=== PATIENT | female | born 1995 | race Two or more races ===

== ENCOUNTER 2024-12-31 19:28 | Inpatient (IN) | payer MEDICAID, SELFPAY ==
[2024-12-31 19:30] VITALS: BMI 24.7
[2024-12-31 19:51] VITALS: BP 133/80; PULSE 88; RESP 18; TEMP 37.1; O2SAT 97
[2024-12-31 20:17] LABS: Collection Type, Urine Clean Catch
[2024-12-31 20:30] LABS: Bacteria,Urine Rare; Bilirubin,Urine Negative (Negative); Blood,Urine Negative (Negative); Clarity,Urine Clear (Clear/Hazy); Color,Urine Colorless (Lt Yel-Yel); Glucose, Urine Negative (Negative); Ketones,Urine Negative (Negative); Leukocyte Esterase,Urine Negative (Negative); Nitrite,Urine Negative (Negative); PH,Urine 6.5 (5.0-7.0); Protein,Urine Negative (Neg - Trace); RBC,Urine 1 /hpf (0-3); Specific Gravity,Urine 1.005 (1.001-1.035); Squamous Epithelial Cell,Urine < 1 /hpf (0-5); Urobilinogen,Urine Negative mg/dL (0.0-1.0); WBC,Urine 2 /hpf (0-5)
[2024-12-31 20:31] LABS: HCG Qualitative,Urine Negative
--- NOTE | 2024-12-31 20:34 | XR_ITS ---
Examination: CT abdomen with intravenous contrast CT pelvis with intravenous contrast 2-D coronal reconstructions 2-D sagittal reconstructions Date and time of exam:January 01, 2000 2510 0 7:00 PM Comparison November 04, 2020 INDICATIONS: Left-sided abdominal pain this week. CTDI: vol (mGy) 7.22 DLP: (mGycm) 374 Technique: Multiple axial sections of the abdomen and pelvis have been obtained. 64 slice high-resolution scanner used. 3 mm axial sections have been obtained, post intravenous injection 60 cc [id number] 2-D sagittal, coronal reconstructions obtained. Low dose protocols were performed. One or more of the following dose reduction techniques were used; automated exposure control, adjustment of the mA and/or KV according to patient size, use of iterative reconstruction technique. Findings: No focal liver or splenic lesions. Absent gallbladder. No pancreatic or adrenal mass. 1 mm lower pole left renal calculus Mild renal parenchymal scar formation Aorta normal size Normal appendix Diffuse wall thickening involving the colon No bowel obstruction No diverticulitis Tiny air droplet in the urinary bladder Osseous structures are intact IMPRESSION: Mild nonspecific diffuse colitis pattern 1 mm nonobstructing left renal calculus
--- NOTE | 2024-12-31 20:36 | PD.EDABDPN ---
ED Abdominal Pain RME/HPI General Chief Complaint: Abdominal Pain Stated complaint: ABD PAIN Time seen by provider: 12/31/24 19:55 Arrival date/time: 12/31/24 19:28 RME / HPI RME / HPI narrative: 29-year-old female with a past medical history of chronic abdominal issues presents to the ED with worsening pain in her left abdomen that became much worse today. She has the urgency to have a bowel movement however she is unable to have a BM. She has had nausea and chills but no vomiting or fever. She had an endoscopy and colonoscopy approximately 4 years ago, which she states was negative. She denies any dysuria or frequency. Related Data Home Medications ?Medication ?Instructions ?Recorded ?Confirmed prenat.vits,gurmeet,[id number] 1 tab PO QDAY 10/24/22 03/04/24 calcium carbonate (Tums) 200 mg PO QDAY 03/04/24 03/04/24 famotidine 10 mg tablet 10 mg PO QDAY 03/04/24 03/04/24 Previous Rx's ?Medication ?Instructions ?Recorded pantoprazole 20 mg tablet,delayed 20 mg PO QDAY 30 days #30 tabs 11/28/23 release Allergies Allergy/AdvReac Type Severity Reaction Status Date / Time No Known Allergies Allergy Verified 12/31/24 19:29 Review of Systems Review of Systems Systems Reviewed: All systems reviewed, normal except as documented Past Medical History Past Medical History NEUROLOGIC: Positive Neurological Disorders and Migraine; Negative Seizures CARDIAC: Negative Cardiac Disorders, Congestive Heart Failure, Edema, Cellulitis or Varicose Veins RESPIRATORY: Negative Chronic Obstructive Pulmonary Disease (COPD) or Asthma GASTROINTESTINAL: Positive Gastrointestinal Disorders, Gall Bladder Disease and Gastroesophageal Reflux Disease; Negative Hepatitis GENITOURINARY: Negative Genitourinary Disorders or Renal Disease REPRODUCTIVE: Positive Previous Pregnancies MUSCULOSKELETAL: Negative Musculoskeletal Disorders ENDOCRINE: Negative Endocrine Disorders, Diabetes Mellitus Type 1 or Diabetes Mellitus Type 2 HEMATOLOGIC: Positive Blood Disorders and Anemia; Negative Sickle Cell Disease PSYCHO/SOCIAL: Positive Depression and Anxiety OTHER HISTORY: Positive Autoimmune Disease and Chicken Pox; Negative Hospitalization, Shingles, Falls, Blood Transfusions, Blood Transfusion Reaction, Anesthesia Reactions, Chemotherapy, Radiation Therapy, MRSA, Measles, Mumps or Cancer Family History FAMILY HISTORY: Positive Family Psychiatric Problems (nephew autism, self anxiey/depression), Family Respiratory Disorders (kids have asthma), Family Cardiac Disorders (sister), Family Gastrointestinal Problems (mother-stomach problems), Family Cancer (grandmother non-hodgkins lymphoma), Family Surgery and Family Anesthesia Reaction (self, pt gets nausea) Surgical History SURGICAL: Positive Section (x3); Negative Pacemaker Social History SMOKING STATUS: Never smoker SECOND HAND EXPOSURE: No SUBSTANCE USE: does not use ED Exam Narrative Physical exam: A&O, afebrile and non-toxic appearing 29-year-old female, mild acute pain distress. Lung sounds are clear, RRR, Abdomen is soft, with left-sided abdominal pain, no right lower quadrant abdominal tenderness, positive rebound and guarding noted to the left side of the abdomen. Mild peritoneal irritation with pelvic rock. Non-distended. No CVA tenderness. Moves all extremities well. Course Course Course Narrative: Vital signs blood pressure 133/80, pulse 88, respirations 18 and nonlabored, temperature 98.7, O2 sat 97% on room air. CBC reveals an elevated white count of 14.8, normal H&H, low MCV, MCH, and RDW. Platelets are normal. ANC is elevated at 12.8. CMP reveals normal electrolytes with the exception of a minimally elevated glucose of 115, normal renal function, normal LFTs with normal lipase. Urinalysis reveals clear colorless urine with a specific gravity of 1.005 with negative nitrites, negative leukocyte esterase, 1 RBC, 2 WBCs, rare bacteria. Urine hCG is negative. Urine tox is negative. CT of the abdomen and pelvis reveals 1 mm lower pole left renal calculus with mild renal parenchymal scar formation. Normal appendix, diffuse wall thickening involving the colon suggestive of mild nonspecific diffuse colitis pattern, no bowel obstruction, no diverticulitis. Discussed case with Dr. Leggett, who recommends admission for IV fluids, antibiotics, and GI consult in the morning. Discussed case with Dr. Keenan, Resident/Hospitalist, who will be down to evaluate the patient for admission. Quality Measures none Orders Category Date Time Status CT Screening NOW Care 12/31/24 20:[address] Screening X1 Care 12/31/24 20:34 Active IV [Insert IV] NOW Care 12/31/24 20:[address] abdomen pelvis w con Stat Exams 12/31/24 20:34 Completed CBC Stat Lab 12/31/24 20:30 Completed Comprehensive Metabolic Panel Stat Lab 12/31/24 20:09 Completed Drug Screen,Urine Stat Lab 12/31/24 20:04 Completed HCG Qualitative,Urine Stat Lab 12/31/24 20:09 Completed Lipase Stat Lab 12/31/24 20:09 Completed Magnesium Stat Lab 12/31/24 20:09 Completed Urinalysis Stat Lab 12/31/24 20:09 Completed Vital Signs Vital signs: Vital Signs Temperature 98.7 F 12/31/24 19:51 Pulse Rate 88 12/31/24 19:51 Respiratory Rate 18 12/31/24 19:51 Blood Pressure 133/80 H 12/31/24 19:51 Pulse Oximetry (%) 97 12/31/24 19:51 Oxygen Delivery Method Room Air 12/31/24 19:51 Discharge Plan Prescriptions/Referrals Prescriptions/Med Rec: No Action prenat.vits,gurmeet,[id number] Tablet 1 tab PO QDAY pantoprazole 20 mg tablet,delayed release (DR/EC) 20 mg PO QDAY 30 Days Qty: 30 1RF famotidine 10 mg Tablet 10 mg PO QDAY calcium carbonate [Tums] 200 mg calcium (500 mg) Tablet,Chewable 200 mg PO QDAY Referrals: Bernabe Smith MD [Primary Care Provider] - In 1 week Patient/Caregiver Discharge Instructions Print Language: German
[2024-12-31 20:57] LABS: Basophils # (Auto) 0.0 Thou/mm3 (0.0-0.2); Basophils % (Auto) 0 % (0-2.5); Eosinophils # (Auto) 0.0 Thou/mm3 (0.0-0.5); Eosinophils % (Auto) 0 % (0-10); Hematocrit 37.9 % (36.0-46.0); Hemoglobin 12.4 g/dL (12.0-16.0); Immature Granulocytes Auto 0.05 Thou/mm3 (0.00-0.00); Lymphocytes # (Auto) 1.6 Thou/mm3 (1.0-4.8); Lymphocytes % (Auto) 11 % (10-50); Mean Corpuscular HGB Conc 32.7 g/dl (31.0-37.0); Mean Corpuscular Hemoglobin 24.8 pg (25.0-35.0); Mean Corpuscular Volume 76 fL (80-100); Monocytes # (Auto) 0.4 Thou/mm3 (0.0-0.8); Monocytes % (Auto) 3 % (0-12); Neutrophils # (Auto) 12.8 Thou/mm3 (1.8-7.7); Neutrophils % (Auto) 86 % (37-80); Nucleated Red Blood Cell # 0.00 Thou/mm3 (0.00-0.00); Nucleated Red Blood Cell % 0 /100 WBC (0); Platelet Count 233 Thou/mm3 (140-440); RDW Standard Deviation 34.4 fL (36.4-46.3); Red Blood Count 4.99 Miln/mm3 (4.00-5.20); White Blood Count 14.8 Thou/mm3 (3.6-11.0)
[2024-12-31 21:24] LABS: Alanine Aminotransferase 10 U/L (10-49); Albumin, Serum 5.0 gm/dL (3.5-5.0); Albumin/Globulin Ratio 1.8 (1.2-2.2); Alkaline Phosphatase 66 U/L (46-116); Anion Gap 12 (7-16); Aspartate Amino Transferase 20 U/L (0-34); BUN/Creatinine Ratio 12 Ratio (12-20); Bilirubin,Total 0.4 mg/dL (0.3-1.2); Blood Urea Nitrogen 7 mg/dL (9-23); Calcium 10.2 mg/dL (8.3-10.6); Calcium (Corrected) 10.2 mg/dL (8.5-10.1); Carbon Dioxide 24.5 mMol/L (20.0-31.0); Chloride 104 mMol/L (98-107); Creatinine (Component) 0.6 mg/dL (0.6-1.3); Estimated Creatinine Clearance 124.1 mL/min (>60); Globulin 2.8 gm/dL (2.3-3.5); Glucose 115 mg/dL (74-106); Magnesium 2.0 mg/dL (1.6-2.6); Osmolality,Calculated 278 (275-295); Potassium 3.7 mMol/L (3.4-5.1); Sodium 140 mMol/L (136-145); Total Protein 7.8 gm/dL (5.7-8.2); eGFR > 60 See Note
[2024-12-31 22:27] LABS: Lipase 32 U/L (12-53)
[2024-12-31 22:33] LABS: Amphetamine/Methamp Scrn,U Negative (Negative); Barbiturate Screen,Urine Negative (Negative); Benzodiazepines Screen,Urine Negative (Negative); Benzoylecgonine Screen, Ur Negative (Negative); Fentanyl Screen,Urine Negative (Negative); Opiate Screen,Urine Negative (Negative); THC Screen,Urine Negative (Negative)
[2025-01-01] MEDS: SODIUM CHLORIDE 0.9% 1000 ML 1,000 ML 999 ML IV (00:08)
[2025-01-01 00:31] LABS: Lactate (Lactic Acid) 0.9 mMol/L (0.4-2.0)
--- NOTE | 2025-01-01 01:03 | PD.RESHP ---
Documentation for date of: 01/01/25 [facility] History of Present Illness Chief complaint: Abdominal pain History of present illness: 29 y/o F without significant PMHx presents with chief complaints of significant abdominal pain and nausea. Patient reports that she frequently has change in bowel habits and abdominal pain, had a colonoscopy and EGD 4 years ago that was negative. Patient reports she frequently changes between diarrhea and constipation. She has intermittent abdominal pain, however for the past 2 days been increasing in intensity significantly. Patient also reports chills and nausea without vomiting this time. Pain increases with solid p.o. intake. Patient reports persistent feeling of tenesmus. Patient denies fevers, shortness of breath, chest pain. ED COURSE: Labs significant for: WBC 14.8, hCG negative, U tox negative. Imaging significant for: CT A/P showing diffuse colitis. Patient achieved 1 L bolus normal saline in the ED. PMH: None PSH: 4 C-sections, cholecystectomy SH: Denies alcohol, tobacco, illicit drug use. Allergies:?None Medications: None Review of Systems Review of Systems Systems Reviewed: All systems reviewed, normal except as documented Past Medical History Past Medical History Comments PMH COMMENT: PMH: None PSH: 4 C-sections, cholecystectomy SH: Denies alcohol, tobacco, illicit drug use. Allergies:?None Medications: None Exam Vital Signs Temp Pulse Resp BP Pulse Ox O2 Del Method 98.7 F 88 18 133/80 H 97 Room Air 12/31/24 19:51 12/31/24 19:51 12/31/24 19:51 12/31/24 19:51 12/31/24 19:51 12/31/24 19:51 Narrative Exam PE: Gen: Well-developed and well-nourished. HEENT: NCAT, PERRLA, EOMI, MMM, anicteric conjunctivae. CVS: normal S1 and S2. RRR. No M/R/G. Resp: CTA B/L. No rhonchi, rales, crackles or wheezing. Abd: soft, non-distended. Diffuse abdominal tenderness, most prominent in the left lower quadrant. MSK: Good ROM in BUE & BLE. No edema or rash. Neuro: CN II-XII grossly intact. Strength 5/5 in BUE & BLE. Alert and oriented x3. Psych: appropriate mood and affect. Results: Labs 12/31/24 20:30 12/31/24 20:09 Labs: Short CBC 12/31/24 Range/Units 20:30 WBC 14.8 H (3.6-11.0) Thou/mm3 Hgb 12.4 (12.0-16.0) g/dL Hct 37.9 (36.0-46.0) % Plt Count 233 (140-440) Thou/mm3 BMP 12/31/24 20:09 Sodium 140 Potassium 3.7 Chloride 104 Carbon Dioxide 24.5 BUN 7 L Creatinine 0.6 Glucose 115 H Calcium 10.2 Liver Function 12/31/24 Range/Units 20:09 Total Bilirubin 0.4 (0.3-1.2) mg/dL AST 20 (0-34) U/L ALT 10 (10-49) U/L Alkaline Phosphatase 66 (46-116) U/L Albumin 5.0 (3.5-5.0) gm/dL Urine 12/31/24 Range/Units 20:09 Urine Color Colorless A (Lt Yel-Yel) Urine Clarity Clear (Clear/Hazy) Urine pH 6.5 (5.0-7.0) Ur Specific [place] 1.005 (1.001-1.035) Urine Protein Negative (Neg - Trace) Urine Glucose (UA) Negative (Negative) Quality Measures Quality Measures VTE prophylaxis Medications Home Medications and Allergies Home Medications ?Medication ?Instructions ?Recorded ?Confirmed ?Type calcium carbonate (Tums) 200 mg PO QDAY 03/04/24 01/01/25 History famotidine 10 mg tablet 10 mg PO QDAY 03/04/24 01/01/25 History Allergies Allergy/AdvReac Type Severity Reaction Status Date / Time No Known Allergies Allergy Verified 12/31/24 19:29 Visit Medications Acetaminophen (Acetaminophen 325 Mg Tablet) 650 mg PO Q6H PRN PRN Reason: Fever >100.4 or pain Stop: 01/31/25 00:52 Enoxaparin Sodium (Enoxaparin Sod Inj 40 Mg/0.4 Ml Syringe) 40 mg SC QDAY TRISTAN Stop: 01/15/25 08:59 Hydromorphone HCl (Hydromorphone Inj 2 Mg/Ml Vial) 2 mg IVP Q4HR PRN PRN Reason: PAIN SCALE 4-10(Mod-Sev Stop: 01/06/25 00:52 Ciprofloxacin/Dextrose (Cipro Ivpb) 400 mg in 200 mls @ 200 mls/hr IV Q12HR TRISTAN Stop: 01/08/25 00:55 Metronidazole (Flagyl 500 Mg Iv) 500 mg in 100 mls @ 200 mls/hr IV Q8HR TIRSTAN Stop: 01/08/25 00:55 Ondansetron HCl (Ondansetron Inj 2 Mg/Ml Inj 2 Ml) 4 mg IVP Q6H PRN; Protocol PRN Reason: NAUSEA OR VOMITING Stop: 01/31/25 00:52 Discontinued Medications Sodium Chloride (Ns) 1,000 mls @ 999 mls/hr IV .Q1H1M ONE Stop: 01/01/25 01:03 Last Admin: 01/01/25 00:08 Dose: 999 mls/hr Assessment & Plan Plan 29 y/o F without significant PMHx presents with chief complaints of significant abdominal pain and nausea, admitted for colitis. #Colitis Patient presented with chief complaint of abdominal pain, tenesmus with constipation. Patient has history of changes in bowel habits between constipation and diarrhea, intermittent abdominal pain, although this is worse than her usual episodes. Patient reports nausea without vomiting, chills. Denies fevers, shortness of breath, chest pain. Leukocytosis 14.8, U tox and hCG testing negative. Patient colonoscopy and EGD 4 years ago that was negative. CT A/P shows diffuse colitis. - CLD - Stool calprotectin, WBCs, culture - GI consult, appreciate recs - Cipro for 400 mg IV every 12 hours (started 01/01) - Flagyl 500 mg IV every 8 hour (started 01/01) #Left renal calculus - Incidental finding on CT abdomen/pelvis - Found to have 1 mm lower pole left renal calculus - Outpatient follow-up DVT prophylaxis: Lovenox GI prophylaxis: None Diet: Clear liquid diet Lines: PIV Code status: Full code Plan of care is discussed with attending Dr. Gardner. Jesus Rogers MD PGY?2 Attending Provider Attestation/Addendum I attest that I was physically present for the evaluation, physical examination, lab and imaging review of the patient with the residents. I discussed the case with the residents and agree with the findings and plans of care as documented above. After examination of the patient and review of the clinical data I feel that this patient needs admission to the hospital for further treatment/evaluation. Patient is a 29 years old female without known past medical history who presented to the ED with complaint of abdominal pain and nausea. Patient has change in her bowel habit, abdominal pain which has been going for few years, she had a colonoscopy and EGD done 4 years ago which was negative. Patient has been having alternating diarrhea and constipation. For the last 2 days, has been getting a increasingly worse. In the ED, initial vitals were within normal limits. Lab results show WBC of 14.8, MCV 76, chemistry panel showed calcium of 10.2. Abdomen/pelvis CT was done, which showed 1 mm nonobstructing left renal calculus and mild nonspecific diffuse colitis pattern. We will admit the patient for management of colitis. We will start her on IV ciprofloxacin and Flagyl. Obtain stool studies, start on clear liquid diet and obtain GI consult. George Gardner MD
[2025-01-01] MEDS: ONDANSETRON INJ 2 MG/ML INJ 2 ML 4 MG IVP (01:06)
[2025-01-01] MEDS: metroNIDAZOLE/NS 500 MG IVPB 500 MG/100 ML BAG 200 MG IV ×2 (01:07→05:02)
[2025-01-01] MEDS: CIPROFLOXACIN/D5w 400 MG IVPB 400 MG/200 ML BAG 200 MG IV ×2 (01:09→08:32)
[2025-01-01 01:42] LABS: C-Reactive Protein < 0.5 mg/dL (0.0-0.9); Procalcitonin < 0.04 ng/ml (0.0-0.49)
--- NOTE | 2025-01-01 01:43 | PC.NURSE ---
REPORT GIVEN TO SANDEEP GRIMALDO AT NH.
[2025-01-01 01:55] VITALS: BP 113/72; PULSE 85; RESP 17; TEMP 36.2; O2SAT 99; BMI 23.3
[2025-01-01] MEDS: ACETAMINOPHEN 325 MG TABLET 650 MG PO (02:13)
[2025-01-01 04:00] VITALS: BP 110/58; PULSE 62; RESP 16; TEMP 36.1; O2SAT 98
[2025-01-01 05:43] LABS: Stool for WBCs Few (Negative)
[2025-01-01 06:31] LABS: Basophils # (Auto) 0.1 Thou/mm3 (0.0-0.2); Basophils % (Auto) 1 % (0-2.5); Eosinophils # (Auto) 0.0 Thou/mm3 (0.0-0.5); Eosinophils % (Auto) 0 % (0-10); Hematocrit 35.8 % (36.0-46.0); Hemoglobin 11.4 g/dL (12.0-16.0); Immature Granulocytes Auto 0.03 Thou/mm3 (0.00-0.00); Lymphocytes # (Auto) 2.1 Thou/mm3 (1.0-4.8); Lymphocytes % (Auto) 21 % (10-50); Mean Corpuscular HGB Conc 31.8 g/dl (31.0-37.0); Mean Corpuscular Hemoglobin 24.6 pg (25.0-35.0); Mean Corpuscular Volume 77 fL (80-100); Monocytes # (Auto) 0.6 Thou/mm3 (0.0-0.8); Monocytes % (Auto) 6 % (0-12); Neutrophils # (Auto) 7.1 Thou/mm3 (1.8-7.7); Neutrophils % (Auto) 72 % (37-80); Nucleated Red Blood Cell # 0.00 Thou/mm3 (0.00-0.00); Nucleated Red Blood Cell % 0 /100 WBC (0); Platelet Count 214 Thou/mm3 (140-440); RDW Standard Deviation 35.4 fL (36.4-46.3); Red Blood Count 4.64 Miln/mm3 (4.00-5.20); White Blood Count 9.9 Thou/mm3 (3.6-11.0)
[2025-01-01 07:20] LABS: Alanine Aminotransferase 8 U/L (10-49); Albumin, Serum 4.3 gm/dL (3.5-5.0); Albumin/Globulin Ratio 2.0 (1.2-2.2); Alkaline Phosphatase 62 U/L (46-116); Anion Gap 11 (7-16); Aspartate Amino Transferase 18 U/L (0-34); BUN/Creatinine Ratio 13 Ratio (12-20); Bilirubin,Total 0.4 mg/dL (0.3-1.2); Blood Urea Nitrogen 8 mg/dL (9-23); Calcium 8.9 mg/dL (8.3-10.6); Calcium (Corrected) 8.9 mg/dL (8.5-10.1); Carbon Dioxide 23.4 mMol/L (20.0-31.0); Cardiac Risk Estimate 3.0 RATIO (3.7-5.6); Chloride 109 mMol/L (98-107); Cholesterol 186 mg/dL (132-200); Creatinine (Component) 0.6 mg/dL (0.6-1.3); Estimated Creatinine Clearance 114.4 mL/min (>60); Globulin 2.2 gm/dL (2.3-3.5); Glucose 100 mg/dL (74-106); HDL Cholesterol 61 mg/dL (40-60); LDL Cholesterol,Calculated 102 mg/dL (0-130); Magnesium 1.8 mg/dL (1.6-2.6); Osmolality,Calculated 283 (275-295); Potassium 3.4 mMol/L (3.4-5.1); Sodium 143 mMol/L (136-145); Thyroid Stimulating Hormone 1.92 uIU/mL (0.55-4.78); Total Protein 6.5 gm/dL (5.7-8.2); Triglycerides 117 mg/dL (30-150); eGFR > 60 See Note
[2025-01-01 08:00] VITALS: BP 110/53; PULSE 60; RESP 17; TEMP 36.2; O2SAT 99
[2025-01-01] MEDS: ENOXAPARIN SOD INJ 40 MG/0.4 ML SYRINGE SC (08:32)
[2025-01-01] MEDS: POTASSIUM CHL 10 mEq IVPB 10 MEQ/100 ML BAG 100 MEQ IV ×4 (09:50→14:03)
--- NOTE | 2025-01-01 11:10 | PC.SS ---
Patient is alert/oriented. Patient was able to verify demographics. Patient states she resides with and kids. Patient is independent with ADL's. Patient was admitted for colitis. Patient has a GI consult. Patient drives. PCP: BLANCA with Dr. Smith. Pharmacy: [facility]. Discharge plan is to return home. No d/c need at this time. Alt medical decision maker: Ricardo, D/c plan: home Transportation: family
[2025-01-01 11:50] VITALS: BP 125/66; PULSE 67; RESP 16; TEMP 36.1; O2SAT 99
--- NOTE | 2025-01-01 15:47 | ESPR_ITS ---
<Statement entered by Araceli Kumar MD - 01/01/25 16:36> Patient was seen and examined at bedside, she reported that she has 5 years history of alternating constipation and diarrhea, she mentions that she has noticed that her symptoms improves whenever she is not eating any dairy products. At this time stool analysis showed positive WBC, pending culture and sensitivity and also pending calprotectin test, GI specialist was consulted for pending his recommendations in the meantime we will send for the patient celiac disease workup. Because the patient possibly going to get an EGD versus colonoscopy we will hold on sending H. pylori test as the patient already on Protonix and also Pepcid. Will do diet modification to avoid dairy products at this time. - Patient's plan and care discussed with my attending, Dr. Juan Daniel Kumar MD Internal Medicine PGY-3 Documentation for date of: 01/01/25 Subjective Subjective Interval history: Patient examined bedside. She is in good spirits, but has some abdominal discomfort. She states she saw a GI specialist 4 years ago but not much came of it. She denies NVD, SOB and chest pain. She denies anyblood in her stool. She describes her stool as super hard a mix of black and brown and then she will have loose mucousy stool. She thinks it could be related to dairy because she has never cut it out of her diet. Sometimes eating improves her nausea. Exam Vital Signs Temp Pulse Resp BP Pulse Ox O2 Del Method 97 F 67 16 125/66 99 Room Air 01/01/25 11:50 01/01/25 11:50 01/01/25 11:50 01/01/25 11:50 01/01/25 11:50 01/01/25 11:50 Narrative Exam PE: Gen: Well-developed and well-nourished. HEENT: NCAT, PERRLA, EOMI, MMM, anicteric conjunctivae. CVS: normal S1 and S2. RRR. No M/R/G. Resp: CTA B/L. No rhonchi, rales, crackles or wheezing. Abd: soft, non-distended. Mild TTP MSK: Good ROM in BUE & BLE. No edema or rash. Neuro: CN II-XII grossly intact. Strength 5/5 in BUE & BLE. Alert and oriented x3. Psych: appropriate mood and affect. Objective Labs 01/01/25 05:00 01/01/25 05:00 Labs: Laboratory Results - last 24 hr 12/31/24 12/31/24 12/31/24 20:04 20:09 20:30 WBC 14.8 H RBC 4.99 Hgb 12.4 Hct 37.9 MCV 76 L MCH 24.8 L MCHC 32.7 RDW Std Deviation 34.4 L Plt Count 233 Neut % (Auto) 86 H Lymph % (Auto) 11 [place] % (Auto) 3 Eos % (Auto) 0 Baso % (Auto) 0 Neut # (Auto) 12.8 H Lymph # (Auto) 1.6 [place] # (Auto) 0.4 Eos # (Auto) 0.0 Baso # (Auto) 0.0 Immature Gran # (Auto) 0.05 H Absolute Nucleated RBC 0.00 Immature Gran % 0 Nucleated RBC % 0 Sodium 140 Potassium 3.7 Chloride 104 Carbon Dioxide 24.5 Anion Gap 12 BUN 7 L Creatinine 0.6 Estim Creat Clear Calc 124.1 eGFR > 60 BUN/Creatinine Ratio 12 Glucose 115 H Calculated Osmolality 278 Lactic Acid Calcium 10.2 Corrected Calcium 10.2 H Magnesium 2.0 Total Bilirubin 0.4 AST 20 ALT 10 Alkaline Phosphatase 66 C-Reactive Prot, Quant Total Protein 7.8 Albumin 5.0 Globulin 2.8 Albumin/Globulin Ratio 1.8 Triglycerides Cholesterol LDL Cholesterol, Calc HDL Cholesterol Cholesterol/HDL Ratio Lipase 32 Procalcitonin TSH Ur Collection Type Clean Catch Urine Color Colorless A Urine Clarity Clear Urine pH 6.5 Ur Specific [place] 1.005 Urine Protein Negative Urine Glucose (UA) Negative Urine Ketones Negative Urine Blood Negative Urine Nitrite Negative Urine Bilirubin Negative Urine Urobilinogen (Auto) Negative Ur Leukocyte Esterase Negative Urine RBC 1 Urine WBC 2 Ur Squamous Epith Cells < 1 Urine Bacteria Rare Urine HCG, Qual Negative Stool for White Cells Urine Opiates Screen Negative Urine Fentanyl Screen Negative Ur Barbiturates Screen Negative U Amphetamin/Meth Scrn Negative U Benzodiazepines Scrn Negative U Cocaine Metab Screen Negative U Marijuana (THC) Screen Negative 01/01/25 01/01/25 01/01/25 00:09 02:38 05:00 WBC 9.9 RBC 4.64 Hgb 11.4 L Hct 35.8 L MCV 77 L MCH 24.6 L MCHC 31.8 RDW Std Deviation 35.4 L Plt Count 214 Neut % (Auto) 72 Lymph % (Auto) 21 [place] % (Auto) 6 Eos % (Auto) 0 Baso % (Auto) 1 Neut # (Auto) 7.1 Lymph # (Auto) 2.1 [place] # (Auto) 0.6 Eos # (Auto) 0.0 Baso # (Auto) 0.1 Immature Gran # (Auto) 0.03 H Absolute Nucleated RBC 0.00 Immature Gran % 0 Nucleated RBC % 0 Sodium 143 Potassium 3.4 Chloride 109 H Carbon Dioxide 23.4 Anion Gap 11 BUN 8 L Creatinine 0.6 Estim Creat Clear Calc 114.4 eGFR > 60 BUN/Creatinine Ratio 13 Glucose 100 Calculated Osmolality 283 Lactic Acid 0.9 Calcium 8.9 Corrected Calcium 8.9 Magnesium 1.8 Total Bilirubin 0.4 AST 18 ALT 8 L Alkaline Phosphatase 62 C-Reactive Prot, Quant < 0.5 Total Protein 6.5 Albumin 4.3 D Globulin 2.2 L Albumin/Globulin Ratio 2.0 Triglycerides 117 Cholesterol 186 LDL Cholesterol, Calc 102 HDL Cholesterol 61 H Cholesterol/HDL Ratio 3.0 L Lipase Procalcitonin < 0.04 TSH 1.92 Ur Collection Type Urine Color Urine Clarity Urine pH Ur Specific [place] Urine Protein Urine Glucose (UA) Urine Ketones Urine Blood Urine Nitrite Urine Bilirubin Urine Urobilinogen (Auto) Ur Leukocyte Esterase Urine RBC Urine WBC Ur Squamous Epith Cells Urine Bacteria Urine HCG, Qual Stool for White Cells Few A Urine Opiates Screen Urine Fentanyl Screen Ur Barbiturates Screen U Amphetamin/Meth Scrn U Benzodiazepines Scrn U Cocaine Metab Screen U Marijuana (THC) Screen Quality Measures Quality Measures VTE prophylaxis Assessment & Plan Assessment Current Active Medications: Generic Name Dose Route Start Last Admin Trade Name Freq PRN Reason Stop Dose Admin Acetaminophen 650 mg 01/01/25 08:47 Acetaminophen 325 Mg Tablet PO 01/31/25 00:52 Q6H PRN Fever >100.4 or pain 1-3 Enoxaparin Sodium 40 mg 01/01/25 09:00 01/01/25 08:32 Enoxaparin Sod Inj 40 Mg/0.4 Ml Syringe SC 01/15/25 08:59 40 mg QDAY TRISTAN Administration Hydromorphone HCl 2 mg 01/01/25 00:53 Hydromorphone Inj 2 Mg/Ml Vial IVP 01/06/25 00:52 Q4HR PRN PAIN SCALE 4-10(Mod-Sev Sodium Chloride 1,000 mls @ 75 mls/hr 01/01/25 13:52 Ns IV 01/31/25 13:51 .[id number] TRISTAN Ondansetron HCl 4 mg 01/01/25 00:53 01/01/25 01:06 Ondansetron Inj 2 Mg/Ml Inj 2 Ml IVP 01/31/25 00:52 4 mg Q6H PRN Administration NAUSEA OR VOMITING Protocol Pantoprazole Sodium 40 mg 01/01/25 11:00 01/01/25 11:07 Pantoprazole Inj 40 Mg Vial IVP 01/31/25 10:59 40 mg QDAY TRISTAN Administration Plan 29 y/o F without significant PMHx presents with chief complaints of significant abdominal pain and nausea, admitted for colitis. #Colitis #possible differentials lactose intolerance, PUD (duodenal ulcer), gluten intolerance, IBS, IBD Patient presented with chief complaint of abdominal pain, tenesmus with constipation. Patient has history of changes in bowel habits between constipation and diarrhea, intermittent abdominal pain, although this is worse than her usual episodes. Sometimes nausea is improved with eating. Patient reports nausea without vomiting, chills. Denies fevers, shortness of breath, chest pain. Leukocytosis 14.8, U tox and hCG testing negative. Patient colonoscopy and EGD 4 years ago that was negative. CT A/P shows diffuse colitis. Protonix given therefore no urea breath or stool antigen drawn. - CLD - Stool calprotectin: <0.04, WBCs: Few (negative), culture: pending - FUP Celiac, IgA, Tissue transglutaminase - GI consult, appreciate recs - Cipro for 400 mg IV every 12 hours (started 01/01) - Discontinue 01/01 - Flagyl 500 mg IV every 8 hour (started 01/01) - Discontinue 01/01 #Left renal calculus - Incidental finding on CT abdomen/pelvis - Found to have 1 mm lower pole left renal calculus - Outpatient follow-up DVT prophylaxis: Lovenox GI prophylaxis: Protonix Diet: Clear liquid diet Lines: PIV Code status: Full code Plan of care is discussed with attending Dr. Frances and supervising residents Dr. Hawkins and Dr. Kumar. Migel Bolaños MD PGY?1 Attending Provider Attestation/Addendum I have discussed and was present for the essential components of the history, physical examination, diagnosis, and treatment plan with the resident. I agree with the patient's care as documented by the resident and amended herein by me. Alexis Frances DO. Although this document has been carefully reviewed, there may still be some phonetic and other typographical errors. These errors are purely grammatical due to imperfections in the software program and should not be construed in any way to compromise the substance of the patient's medical care during this visit. Patient seen and evaluated this AM. No acute events, vital signs stable, patient afebrile in the morning, labs largely unremarkable. Patient still endorsing abdominal pain, which is sharp in nature and moves around sometimes in the lower abdomen sometimes in the epigastric region. She states she has been dealing with bowel issues for approximately 5 years however her GERD has lasted much longer. She had a cholecystectomy approximately 3 years ago. She states she has frequent periods of constipation and diarrhea, sometimes occurring in the same day. Patient endorsed endoscopy and colonoscopy approximately 4 years ago which was unremarkable per her. Patient denies trying to refrain from gluten or maintain a lack toes free diet. We will test for celiac disease however concerned the patient was on a PPI at home, we will hold off on testing H. pylori for now, gastroenterology is consulted, appreciate recommendations. CT abdomen and pelvis did demonstrate mild diffuse colitis pattern.
[2025-01-01 16:00] VITALS: BP 98/66; PULSE 103; RESP 16; TEMP 36.1; O2SAT 98
[2025-01-01 20:00] VITALS: BP 102/65; PULSE 57; RESP 18; TEMP 36.3; O2SAT 100
--- NOTE | 2025-01-01 21:18 | PD.RESEVENT ---
Documentation for date of: 01/01/25 Event Note Event Note: Patient left AMA at approximately 9:15 PM. Patient stating that her had been called to work unexpectedly and she needed someone to watch her child. She was unwilling/unable to wait for day team as her would leave for work at 4 in the morning. Is explained to patient that there is recommended she remain to receive EGD and continued IV antibiotics, patient's was understanding of the risks of leaving early. Patient stated that she would follow-up outpatient for further management of her condition. Jesus Rogers MD PGY?2
--- NOTE | 2025-01-01 21:38 | PD.IMCONS ---
HPI Data of Consult Requesting Physician: Keaton Frances DO Primary Care Provider: Bernabe Smith MD Consult Narrative Reason for consult: Pain abdomen abnormal CT scan of the abdomen and pelvis History of present illness: Chart reviewed imaging studies reviewed But patient left AGAINST MEDICAL ADVICE and patient could not be evaluated cc:: cc: Keaton Frances DO Meds Home Medications and Allergies Home Medications ?Medication ?Instructions ?Recorded ?Confirmed ?Type calcium carbonate (Tums) 200 mg PO QDAY 03/04/24 01/01/25 History famotidine 10 mg tablet 10 mg PO QDAY 03/04/24 01/01/25 History Allergies Allergy/AdvReac Type Severity Reaction Status Date / Time No Known Allergies Allergy Verified 12/31/24 19:29 Exam Vital Signs Temp Pulse Resp BP Pulse Ox O2 Del Method 97.3 F 57 L 18 102/65 100 Room Air 01/01/25 20:00 01/01/25 20:00 01/01/25 20:00 01/01/25 20:00 01/01/25 20:00 01/01/25 20:00 Results Labs 01/01/25 05:00 01/01/25 05:00 Labs: Short CBC 01/01/25 Range/Units 05:00 WBC 9.9 (3.6-11.0) Thou/mm3 Hgb 11.4 L (12.0-16.0) g/dL Hct 35.8 L (36.0-46.0) % Plt Count 214 (140-440) Thou/mm3 BMP 01/01/25 05:00 Sodium 143 Potassium 3.4 Chloride 109 H Carbon Dioxide 23.4 BUN 8 L Creatinine 0.6 Glucose 100 Calcium 8.9 Liver Function 01/01/25 Range/Units 05:00 Total Bilirubin 0.4 (0.3-1.2) mg/dL AST 18 (0-34) U/L ALT 8 L (10-49) U/L Alkaline Phosphatase 62 (46-116) U/L Albumin 4.3 D (3.5-5.0) gm/dL
--- NOTE | 2025-01-01 21:38 | PC.NURSE ---
Pt left AMA at 2122. The risk were explained by Dr. Rogers. RN removed IV and patient left via herself.
[2025-01-05 06:44] LABS: (tTG) Ab, IgA <1.0 U/mL; (tTG) Ab, IgG <1.0 U/mL; IgA, Serum* 160 mg/dL (47-310)
[2025-01-08 06:39] LABS: Calprotectin, Stool* 374 mcg/g
== END 2025-01-01 21:23 | disposition left against medical advice (07) | DRG 249 ==
LOC: SERX 20:28 → SERHOLD 01-01 01:43 → S3NX 01-01 02:09
PROVIDERS: Physician Assistant; Admitting Provider Student in an Organized Health Care Education/Training Program; Emergency Provider Emergency Medicine; PCP Family Medicine; Visit Provider Student in an Organized Health Care Education/Training Program
DX: K52.9 Noninfective gastroenteritis and colitis, unspecified (principal); N20.0 Calculus of kidney; K59.00 Constipation, unspecified; Z90.49 Acquired absence of other specified parts of digestive tract; Z53.29 Procedure and treatment not carried out because of patient's decision for other reasons
CPT/HCPCS: 36415; 74177; 80053; 80061; 80307; 81001; 81025; 82784; 83605; 83690; 83735; 83993; 84145; 84443; 85025; 86140; 86364; 87015; 87040; 87045; 87046; 87205; 87338; 87899; 99284; A4649; J0744; J1650; J2405; J2470; J3480; J3490; J7030; Q9967; A9270; J1836

== ENCOUNTER 2025-01-18 09:04 | Outpatient (AMB) | payer MEDICAID, SELFPAY ==
[2025-01-18 09:17] VITALS: BP 133/80; PULSE 70; RESP 18; TEMP 36.6; O2SAT 99; BMI 24.3
--- NOTE | 2025-01-18 09:17 | PD.RESCLINIC ---
Vital Signs 01/18/25 09:17 Height 1.6 m Height Method Stated Weight 62.312 kg Weight Measurement Method Standing Scale BMI 24.3 BP 133/80 H Blood Pressure Source Automatic Cuff Blood Pressure Location Left Upper Arm Position Sitting Respiration 18 Pulse 70 Pulse Source Monitor Temp 97.8 F Temp Source Oral Pulse Oximetry (%) 99 Oxygen Delivery Method Room Air Allergies/Meds Allergies & Medications Allergies No Known Allergies Allergy (Verified 01/18/25 09:18) Medication Reconciliation aluminum-mag hydroxide-simethicone 200 mg-200 mg-20 mg/5 mL oral susp (Maalox Advanced) 10 ml PO QID PRN indigestion #3,000 mL 01/18/25 [Rx] cholestyramine 4 gram oral powder (Cholestyramine Light) 4 g PO TID #239.4 grams 01/18/25 [Rx] famotidine 40 mg tablet 40 mg PO QDAY #90 tabs 01/18/25 [Rx] MA Intake Visit Data Collection New Patient or Established: Established Patient (seen at [facility] within 3 years) Seen by Clinical Staff ONLY (RN/MA): No Pain Present Currently: No Pain scale:: 0 Pain Scale Used: Garcia-Cosme/Numerical PCP or OBGYN visit in last 3 months: Yes Do You Feel Safe at Home: Yes Authorities Contacted: N/A Smoking Status Smoking Status: Never smoker Immunization / Flu Flu Vaccine in the Last 12 Months: No Flu Vaccine Exclusion Criteria: No Exclusion Criteria Past Medical History Past Medical History NEUROLOGIC: Positive Neurological Disorders and Migraine; Negative Seizures CARDIAC: Negative Cardiac Disorders, Congestive Heart Failure, Edema, Cellulitis or Varicose Veins RESPIRATORY: Negative Chronic Obstructive Pulmonary Disease (COPD) or Asthma GASTROINTESTINAL: Positive Gastrointestinal Disorders, Gall Bladder Disease and Gastroesophageal Reflux Disease; Negative Hepatitis GENITOURINARY: Negative Genitourinary Disorders or Renal Disease REPRODUCTIVE: Positive Previous Pregnancies ENDOCRINE: Negative Endocrine Disorders, Diabetes Mellitus Type 1 or Diabetes Mellitus Type 2 HEMATOLOGIC: Positive Blood Disorders and Anemia; Negative Sickle Cell Disease PSYCHO/SOCIAL: Positive Depression and Anxiety OTHER HISTORY: Positive Autoimmune Disease and Chicken Pox; Negative Hospitalization, Shingles, Falls, Blood Transfusions, Blood Transfusion Reaction, Anesthesia Reactions, Chemotherapy, Radiation Therapy, MRSA, Measles, Mumps or Cancer Family History FAMILY HISTORY: Positive Family Psychiatric Problems, Family Respiratory Disorders, Family Cardiac Disorders, Family Gastrointestinal Problems, Family Cancer, Family Surgery and Family Anesthesia Reaction Surgical History SURGICAL: Positive Section; Negative Pacemaker Social History SMOKING STATUS: Smoking status: Never smoker SECOND HAND EXPOSURE: second hand exposure: No ALCOHOL: Alcohol Intake: Never HOUSING: Housing: House LIVES WITH: Lives With: Family Patient Portal Questionaires Social History Living Situation History Housing: House Tobacco History Smoking Status: Never smoker Second Hand Smoke Exposure: No Alcohol History Alcohol Intake: Never Domestic Abuse History Do You Feel Safe at Home: Yes Review of Systems Report any current symptoms Only answer those that you have currently: Past Medical History Past Medical History Have you ever been diagnosed with any of the following: Neurological Problems Seizures: No Migraine: Yes Cardiology Problems Congestive Heart Failure: No Edema: No Cellulitis: No Varicose Veins: No Respiratory Problems Chronic Obstructive Pulmonary Disease (COPD): No Asthma: No Stomache/Intestinal Problems Hepatitis: No Gall Bladder Disease: Yes Gastroesophageal Reflux Disease: Yes Genital/Urinary Problems Renal Disease: No Reproductive Problems Previous Pregnancies: Yes Endocrine Problems Diabetes Mellitus Type 1: No Diabetes Mellitus Type 2: No Blood Problems Anemia: Yes Sickle Cell Disease: No Psychologic Problems Depression: Yes Anxiety: Yes Other Problems Hospitalization: No Autoimmune Disease: Yes Shingles: No Falls: No Blood Transfusions: No Blood Transfusion Reaction: No Anesthesia Reactions: No Chemotherapy: No Radiation Therapy: No MRSA: No Chicken Pox: Yes Measles: No Mumps: No Cancer: No Surgical History Pacemaker: No History of Present Illness HPI Narrative 01/18/25 This is a 29-year-old female without significant past medical history presented with chief complaint of chronic abdominal discomfort mainly in the epigastric region and diarrhea for last couple years. She reports the symptoms started worsening from last 6 months when she noticed worsening alternating bowel movements mainly diarrhea dominant. She denied noticing any rickey blood. Unrelated with food intake. Endorses nausea immediately without vomiting and excessive burping with bloating. Also reports to have feeling of tenesmus. Denies any shortness of breath, chest pain or any other complaint. Due to the symptoms, patient went to the hospital on 01/01/2025 however left AMA before any medical management like EGD or colonoscopy due to her personal reasons. Past medical history: Nonsignificant Past surgical history: History of cholecystectomy and 4 C-sections SH: Denies smoking or drinking alcohol no history of illicit drug use. Allergies: NKDA Home medications:none Of note, patient reported that she had an EGD and colonoscopy 4 years ago which was negative. Follow-up on hospital labs revealed stool calprotectin was elevated 374 with few WBCs. Tissue transglutaminase test were negative for celiac disease. Kidney functions were normal. CT abdomen pelvis showed 1 mm nonobstructing left renal calculus with diffuse colitis pattern. She is said that she left AMA due to family reason and never had a EGD or colonoscopy. She was informed that she would need another EGD or colonoscopy and can try cholestyramine 4 g 3 times a day to help with loose stools could be possible related to postcholecystectomy syndrome. Pepcid and Maalox was given as needed for acid reflux. RUBY panel, and H. pylori stool antigen were ordered. Referral given to GI specialist, Dr. Carroll for further evaluation. Review of Systems Review of Systems Systems Reviewed: All systems reviewed, normal except as documented Objective/Exam Narrative Physical exam: GENERAL APPEARANCE: AxOx4, generally well-appearing female in no acute distress. HEENT: NC, AT. MMM. EOMI, clear conjunctiva, oropharynx clear. NECK: Supple without lymphadenopathy. No stiffness or restricted ROM. HEART: Regular rate and regular rhythm, normal S1/S2, no m/r/g LUNGS: CTAB, moving air well. No crackles or wheezes are heard. ABDOMEN: Soft, mild epigastric tenderness, nondistended with good bowel sounds heard. BACK: No CVAT, no obvious deformity. EXTREMITIES: Without cyanosis, clubbing or edema. NEUROLOGICAL: Grossly nonfocal. Alert and oriented, moving all 4 extremities. CN not formally tested but appear grossly intact. Observed to ambulate with normal gait. Skin: Warm and dry without any rash. Psych: Appropriate mood and affect Assessment & Plan Diagnosis / Problem List (1) Postcholecystectomy syndrome: Status: Acute Assessment & Plan: - Patient reported that she had cholecystectomy in 2020. She has been facing issues with bowel movements since early age. -Symptoms have been worsening from last 2 to 3 years. Plan: - Cholestyramine given 2 g 3 times a day -GI referral (2) Chronic diarrhea: Status: Acute Assessment & Plan: - Patient reported to have abdominal pain mainly in the epigastric region with bloating, acid reflux and nausea. She reported that she has alternating bowel movements with dominance of diarrhea bloat and constipation. No rickey blood noticed. Unrelieved with food intake. Patient usually eats food at home. She went to the hospital for checkup on 01/01/2025 however left AMA before any management same-day - Chart review showed labs from the hospital were significant for stool calprotectin 374 with few WBCs - Celiac test were negative - Differentials include IBD, postcholecystectomy syndrome, H. pylori infection, microscopic colitis, IBS Plan: - Recommended to take Tylenol as needed for pain - Pepcid and Maalox given for acid reflux - Referred to GI specialist, Dr. Carroll for another EGD and colonoscopy - H. pylori stool antigen and RUBY ordered Patient was seen and discussed with attending physician, Dr.Watankaunakorn Dr Conrado [place] PGY3 Orders: Orders RUBY IFA Screen w/refl, IFA* Today Referrals Gastroenterology K52.9 - Noninfective gastroenteritis and colitis, unspecified, K91.5 - Postcholecystectomy syndrome Office Procedures [facility] Level of Care Nursing/Assessment Patient Status: Established Patient Nursing Assessment/Reassessment: Medication Reconciliation, Update PMH in EMR and Vital Signs Coordination of Care: Education Complex Pt/Fam, Results/Orders obtained and Staff clarify orders Established Patient Charge Established Patient Point Assignment: 65 Established Patient Point Charge: EP Level 2 (40-75)
== END 2025-01-18 09:43 | disposition home or self-care (01) ==
LOC: HODAHC 09:04
PROVIDERS: PCP Family Medicine; Referring Provider Family Medicine; Supervising Provider Student in an Organized Health Care Education/Training Program; Visit Provider Student in an Organized Health Care Education/Training Program
DX: K91.5 Postcholecystectomy syndrome (principal); K52.9 Noninfective gastroenteritis and colitis, unspecified
CPT/HCPCS: 99212; G0463